=== PATIENT | male | born 1945 | race Caucasian/White ===

== ENCOUNTER 2021-03-07 18:53 | Observation (INO) | payer MEDICARE, BC, OTHER ==
[~2021-03-07] VITALS: Ht 180.3 cm; Wt 108.5 kg
[~2021-03-07 18:53] MED LIST: ASPI-496 PO; FINA5TAB4 PO; LISI1TAB23 PO; MULT-257 PO; SIMV40TA20 PO; TRAM50TA2 PO
--- NOTE | 2021-03-07 19:10 | NUR ---
Chest pain 10/10 that radiates to left shoulder at 1800. enroute 324 of asa 1 of nitro. At this time the pt denies pain. c/o of nausea and sob. EKG DONE ON ARRIVAL. PT HOOKED UP TO ALL MONITOR NSR ON MONITOR. CALL LIGHT WITHIN REACH. DR. RODRÍGUEZ AT BEDSIDER FOR EVAL.
[2021-03-07 19:35] LABS: BASOPHILS % (AUTO) 1 % (0-1); EOSINOPHILS % (AUTO) 5 % (1-7); LYMPHOCYTES % (AUTO) 32 % (22-44); MD NO; MEAN CORPUSCULAR HEMOGLOBIN 32.3 pg (27.5-34.5); MEAN CORPUSCULAR HGB CONC 34.1 g/dL (33.2-36.2); MEAN PLATELET VOLUME 8.2 fL (7.4-10.4); MONOCYTES % (AUTO) 9 % (2-9); NEUTROPHILS % (AUTO) 53 % (42-75); PLATELET COUNT 196 x10^3/uL (130-400); RED CELL DISTRIBUTION WIDTH 13.2 % (9.4-14.8)
[2021-03-07 19:46] LABS: ALBUMIN 3.8 g/dL (3.4-5.0); ANION GAP 5 mmol/L (5-15); CHLORIDE 113 mmol/L (98-107)
[2021-03-07 19:50] LABS: CREATININE 0.97 mg/dL (0.7-1.3); TROPONIN I < 0.015 ng/mL (0.000-0.045)
--- NOTE | 2021-03-07 20:00 | NUR ---
PT AT BEDSIDE. PT C/O MINIMAL CHEST PAIN AT THIS TIME 1/10 SQUEEZING FEELING. VSS. CALL REMOTE WITHING REACH. BED AT LOWEST LEVEL. CHART UP FOR RECHECK BY ERP.
[2021-03-07] MEDS ORDERED: MONT5TAB6 PO (20:36)
[2021-03-07] MEDS ORDERED: TADA5TAB2 PO (20:36)
[2021-03-07] MEDS ORDERED: IRBE75TA6 PO (20:36)
[2021-03-07] MEDS ORDERED: PROMETHAZINE 25 MG/ML, 1ML ONE (20:46)
[2021-03-07] MEDS ORDERED: RIBO25TA PO (21:00)
[2021-03-07] MEDS ORDERED: PROMETHAZINE 25 MG/ML, 1ML IM ONE (21:00)
[2021-03-07] MEDS ORDERED: CHOL10003 PO (21:00)
[2021-03-07] MEDS ORDERED: CALC-780 PO (21:00)
--- NOTE | 2021-03-07 21:00 | NUR ---
PT STATES DOES NOT HAVE NAUSEA AT THIS TIME. DOES NOT WANT PHENEGRAN.
--- NOTE | 2021-03-07 21:14 | NUR ---
REPORT GIVEN TO KENNY Nettles.
[2021-03-07] MEDS ORDERED: ACETAMINOPHEN 325 MG TABLET PO PRN (21:30)
[2021-03-07] MEDS ORDERED: ENALAPRILAT 1.25 MG/ML, 2ML IVPush PRN (21:30)
[2021-03-07] MEDS ORDERED: morphine SULFATE 10 MG/ML, 1ML IVPush PRN (21:30)
[2021-03-07] MEDS ORDERED: LIDODERM 5% PATCH TD PRN (21:30)
[2021-03-07] MEDS ORDERED: DOCUSATE 100 MG CAPSULE PO PRN (21:30)
[2021-03-07] MEDS ORDERED: MELATONIN 5 MG TABLET PO PRN (21:30)
[2021-03-07] MEDS ORDERED: ONDANSETRON 2MG/ML, 2ML IVPush PRN (21:30)
[2021-03-07] MEDS ORDERED: NITROGLYCERIN 0.4 MG BOTTLE (25 TABS) SL PRN (21:30)
[2021-03-07 22:12] VITALS: BP 145/87
[2021-03-07] MEDS: HEPARIN 5,000 UNITS/ML, 1ML SQ SCH (22:33)
[2021-03-08 00:24] VITALS: BP 130/85
[2021-03-08 01:28] LABS: TROPONIN I < 0.015 ng/mL (0.000-0.045)
[2021-03-08] MEDS: HEPARIN 5,000 UNITS/ML, 1ML SQ SCH ×2 (06:22→14:30)
[2021-03-08] MEDS ORDERED: POTASSIUM CHLORIDE 20 MEQ TAB.ER.PRT PO ONE (07:30)
[2021-03-08] MEDS ORDERED: IRBE1TAB37 PO (07:49)
[2021-03-08 08:00] VITALS: BP 130/85
[2021-03-08 08:23] LABS: BASOPHILS % (AUTO) 1 % (0-1); EOSINOPHILS % (AUTO) 4 % (1-7); LYMPHOCYTES % (AUTO) 27 % (22-44); MEAN CORPUSCULAR HEMOGLOBIN 32.3 pg (27.5-34.5); MEAN CORPUSCULAR HGB CONC 33.8 g/dL (33.2-36.2); MEAN PLATELET VOLUME 8.5 fL (7.4-10.4); MONOCYTES % (AUTO) 9 % (2-9); NEUTROPHILS % (AUTO) 60 % (42-75); PLATELET COUNT 186 x10^3/uL (130-400); RED BLOOD COUNT 4.81 x10^6/uL (4.38-5.82); RED CELL DISTRIBUTION WIDTH 13.5 % (9.4-14.8)
[2021-03-08 08:25] LABS: MD NO
[2021-03-08 08:37] LABS: ANION GAP 6 mmol/L (5-15); CALCIUM 8.5 mg/dL (8.5-10.1); CHLORIDE 112 mmol/L (98-107)
[2021-03-08 08:43] LABS: CHOL/HDL RATIO 3.2; CHOLESTEROL, TOTAL 155 mg/dL (140-239); HDL CHOL % 32 % (26-37); HDL CHOLESTEROL (DIRECT) 49 mg/dL (40-60); LDL CHOLESTEROL,CALCULATED 76 mg/dL (54-169); LDL/HDL RATIO 1.6 (0.5-3.0); TRIGLYCERIDES 151 mg/dL (50-200); TROPONIN I < 0.015 ng/mL (0.000-0.045); VLDL CHOLESTEROL 30 mg/dL (0-25)
[2021-03-08] MEDS ORDERED: REGADENOSON 0.4 MG/5 ML SYRINGE ONE (08:58)
[2021-03-08 13:58] VITALS: BP 128/81
== END 2021-03-08 16:12 | disposition home or self-care (01) ==
LOC: ED 19:22 → EDIP 21:08 → 5SO 21:50 → DCLOUNGE 03-08 16:05
PROVIDERS: ADMIT Family Medicine; ATTEND Family Medicine
DX: R07.89 Other chest pain (principal); I10 Essential (primary) hypertension; E78.5 Hyperlipidemia, unspecified; E66.9 Obesity, unspecified; N40.0 Benign prostatic hyperplasia without lower urinary tract symptoms; J45.909 Unspecified asthma, uncomplicated; I51.89 Other ill-defined heart diseases; I37.1 Nonrheumatic pulmonary valve insufficiency; I71.2 Thoracic aortic aneurysm, without rupture; Q21.1 Atrial septal defect; Z87.891 Personal history of nicotine dependence; Z79.899 Other long term (current) drug therapy
CPT/HCPCS: 36415; 71045; 78452; 80048; 80061; 82040; 83880; 84443; 84484; 85025; 93005; 93017; 93306; 96372; 99285; A9502; G0378; J1644; J2785

== ENCOUNTER 2021-07-28 08:29 | Inpatient (IN) | payer MEDICARE, BC, OTHER ==
[~2021-07-28] VITALS: Ht 182.9 cm; Wt 104.8 kg
[~2021-07-28 08:29] MED LIST changes: +CALC-780 PO; +CHOL10003 PO; +IRBE1TAB37 PO; +IRBE75TA6 PO; +MONT5TAB6 PO; +RIBO25TA PO; +TADA5TAB2 PO
--- NOTE | 2021-07-28 08:39 | NUR ---
PT BIBA. PER EMS PT HAS HAD COVID [id number], BUT HAD WORSENING SOB TODAY. PER EMS PT WAS MID 80% ON RA, PT CURRENTLY ON 4L NC O2 AND IS AT 94%. PT REPORTS HE HAS HAD THE COVID VACCINE. PT RESTING IN [facility], MONITORING IN PLACE, EKG DONE UPON ARRIVAL, PIV PLACED BY EMS, NUZHAT.
[2021-07-28] MEDS ORDERED: DEXAMETHASONE 4 MG/ML, 1ML ONE (08:55)
[2021-07-28 09:20] LABS: BASOPHILS % (AUTO) 0 % (0-1); EOSINOPHILS % (AUTO) 0 % (1-7); LYMPHOCYTES % (AUTO) 11 % (22-44); MEAN CORPUSCULAR HEMOGLOBIN 32.5 pg (27.5-34.5); MEAN CORPUSCULAR HGB CONC 34.8 g/dL (33.2-36.2); MEAN PLATELET VOLUME 8.9 fL (7.4-10.4); MONOCYTES % (AUTO) 6 % (2-9); NEUTROPHILS % (AUTO) 83 % (42-75); PLATELET COUNT 228 x10^3/uL (130-400); RED BLOOD COUNT 4.96 x10^6/uL (4.38-5.82); RED CELL DISTRIBUTION WIDTH 12.5 % (9.4-14.8)
[2021-07-28 09:21] LABS: PLATELET (DIC) 218 x10^3/uL (130-400)
--- NOTE | 2021-07-28 09:21 | NUR ---
PT O2 SATS CONTINUOUSLY DROPPING DOWN TO 87% DESPITE INCREASING O2. EDMD AWARE. PT NOW 92% ON 10L OXYMASK.
[2021-07-28] MEDS ORDERED: DEXAMETHASONE 4 MG/ML, 1ML IV ONE (09:30)
[2021-07-28 09:31] LABS: ALANINE AMINOTRANSFERASE 59 U/L (12-78); ALBUMIN 2.9 g/dL (3.4-5.0); ANION GAP 10 mmol/L (5-15); CALCIUM 8.6 mg/dL (8.5-10.1); CHLORIDE 105 mmol/L (98-107)
[2021-07-28 09:34] LABS: D-DIMER (DIC) 1.14 ug/mlFEU (0.00-0.52); PROTIME 10.9 Seconds (9.6-11.5); PTT 27 Seconds (25-31)
[2021-07-28 09:38] LABS: ALKALINE PHOSPHATASE 56 U/L (45-117); BILIRUBIN,TOTAL 1.6 mg/dL (0.2-1.0); CREATININE 0.99 mg/dL (0.7-1.3); TOTAL PROTEIN 7.5 g/dL (6.4-8.2)
[2021-07-28 09:43] LABS: FIBRINOGEN > 713 mg/dL (200-340)
[2021-07-28] MEDS: DOXYCYCLINE 100 MG in DEXTROSE 5% 250 ML IV SCH ×2 (10:00→22:21)
[2021-07-28] MEDS ORDERED: ONDANSETRON 2MG/ML, 2ML ONE (10:02)
[2021-07-28] MEDS ORDERED: ONDANSETRON 2MG/ML, 2ML IVPush ONE (10:30)
[2021-07-28] MEDS ORDERED: CEFTRIAXONE 1,000 MG in DEXTROSE 5% 50 ML IVPB ONE (11:00)
[2021-07-28 12:51] VITALS: BP 91/57
[2021-07-28] MEDS ORDERED: morphine SULFATE 10 MG/ML, 1ML IVPush PRN (13:30)
[2021-07-28] MEDS ORDERED: GUAIFENESIN/DM 200-20MG, 10ML UDC PO PRN (13:30)
[2021-07-28] MEDS ORDERED: hydrALAzine 20 MG/ML, 1ML IVPush PRN (13:30)
[2021-07-28] MEDS ORDERED: ACETAMINOPHEN 325 MG TABLET PO PRN (13:30)
[2021-07-28] MEDS ORDERED: PHARMACY MAY ADJ FOR RENAL FX MC PRN (13:30)
[2021-07-28] MEDS ORDERED: ALBUTEROL/IPRATROPIUM 2.5MG/0.5MG, 3 ML HHN SCH (14:00)
[2021-07-28] MEDS ORDERED: REMDESIVIR 200 MG in SODIUM CHLORIDE 0.9% 250 ML IVPB ONE (14:30)
[2021-07-28] MEDS: ALBUTEROL-IPRATROPIUM MDI INH INH SCH ×2 (16:20→22:21)
[2021-07-28] MEDS: GUAIFENESIN/DM 200-20MG, 10ML UDC PO SCH ×2 (16:22→22:21)
[2021-07-28] MEDS: HEPARIN 5,000 UNITS/ML, 1ML SQ SCH (16:22)
[2021-07-28 18:58] VITALS: BP 112/72
[2021-07-28] MEDS: SIMVASTATIN 40 MG TABLET PO SCH (19:58)
[2021-07-28] MEDS: MONTELUKAST 10 MG TABLET PO SCH (19:58)
[2021-07-28] MEDS: ASCORBIC ACID 500 MG TABLET PO SCH (19:58)
[2021-07-29 00:16] VITALS: BP 96/60
[2021-07-29] MEDS: HEPARIN 5,000 UNITS/ML, 1ML SQ SCH ×3 (01:06→16:41)
[2021-07-29] MEDS: GUAIFENESIN/DM 200-20MG, 10ML UDC PO SCH ×4 (03:53→22:22)
[2021-07-29] MEDS: ALBUTEROL-IPRATROPIUM MDI INH INH SCH ×4 (03:53→22:00)
[2021-07-29 05:39] LABS: BASOPHILS % (AUTO) 0 % (0-1); EOSINOPHILS % (AUTO) 0 % (1-7); LYMPHOCYTES % (AUTO) 11 % (22-44); MEAN CORPUSCULAR HEMOGLOBIN 32.4 pg (27.5-34.5); MEAN CORPUSCULAR HGB CONC 34.8 g/dL (33.2-36.2); MEAN PLATELET VOLUME 8.8 fL (7.4-10.4); MONOCYTES % (AUTO) 4 % (2-9); NEUTROPHILS % (AUTO) 85 % (42-75); PLATELET COUNT 226 x10^3/uL (130-400); RED BLOOD COUNT 4.84 x10^6/uL (4.38-5.82); RED CELL DISTRIBUTION WIDTH 12.9 % (9.4-14.8)
[2021-07-29 05:41] LABS: ALANINE AMINOTRANSFERASE 55 U/L (12-78); ALBUMIN 2.7 g/dL (3.4-5.0); ANION GAP 8 mmol/L (5-15); CALCIUM 8.6 mg/dL (8.5-10.1); CHLORIDE 107 mmol/L (98-107); CREATININE 0.74 mg/dL (0.7-1.3)
[2021-07-29 05:44] LABS: ALKALINE PHOSPHATASE 54 U/L (45-117); BILIRUBIN,TOTAL 1.4 mg/dL (0.2-1.0); TOTAL PROTEIN 7.4 g/dL (6.4-8.2)
[2021-07-29 07:19] VITALS: BP 105/69
[2021-07-29] MEDS: PANTOPRAZOLE 40MG TABLET PO SCH (08:10)
[2021-07-29] MEDS: IRBESARTAN 150 MG TABLET PO SCH ×2 (08:10→09:35)
[2021-07-29] MEDS: DEXAMETHASONE 4 MG/ML, 1ML IVPush SCH (08:10)
[2021-07-29] MEDS: ZINC SULFATE 220 MG CAPSULE PO SCH (08:11)
[2021-07-29] MEDS: ASCORBIC ACID 500 MG TABLET PO SCH ×2 (08:11→22:22)
[2021-07-29] MEDS: FINASTERIDE 5 MG TABLET PO SCH (08:11)
[2021-07-29] MEDS ORDERED: CEFTRIAXONE 1,000 MG in DEXTROSE 5% 50 ML IVPB SCH (09:00)
[2021-07-29] MEDS ORDERED: HYDROCHLOROTHIAZIDE 12.5 MG CAPSULE PO SCH (09:00)
[2021-07-29] MEDS: DOXYCYCLINE 100 MG in DEXTROSE 5% 250 ML IV SCH ×2 (10:35→22:23)
[2021-07-29 12:22] VITALS: BP 118/78
[2021-07-29] MEDS ORDERED: OMNIPAQUE 350 MG/ML, 100ML BOTTLE ONE (15:11)
[2021-07-29] MEDS: REMDESIVIR 100 MG in SODIUM CHLORIDE 0.9% 250 ML IVPB SCH (15:23)
[2021-07-29 19:34] VITALS: BP 122/76
[2021-07-29] MEDS: SIMVASTATIN 40 MG TABLET PO SCH (22:22)
[2021-07-29] MEDS: MONTELUKAST 10 MG TABLET PO SCH (22:22)
[2021-07-30] MEDS: HEPARIN 5,000 UNITS/ML, 1ML SQ SCH ×3 (00:05→18:14)
[2021-07-30 00:10] VITALS: BP 112/76
[2021-07-30] MEDS: GUAIFENESIN/DM 200-20MG, 10ML UDC PO SCH ×3 (04:24→18:14)
[2021-07-30] MEDS: ALBUTEROL-IPRATROPIUM MDI INH INH SCH ×3 (04:24→18:14)
[2021-07-30 07:06] LABS: BASOPHILS % (AUTO) 0 % (0-1); EOSINOPHILS % (AUTO) 1 % (1-7); LYMPHOCYTES % (AUTO) 10 % (22-44); MEAN CORPUSCULAR HEMOGLOBIN 31.7 pg (27.5-34.5); MEAN PLATELET VOLUME 8.9 fL (7.4-10.4); MONOCYTES % (AUTO) 4 % (2-9); NEUTROPHILS % (AUTO) 84 % (42-75); PLATELET COUNT 216 x10^3/uL (130-400); RED BLOOD COUNT 4.81 x10^6/uL (4.38-5.82); RED CELL DISTRIBUTION WIDTH 12.5 % (9.4-14.8)
[2021-07-30 07:20] LABS: CHLORIDE 106 mmol/L (98-107)
[2021-07-30 07:28] LABS: ALANINE AMINOTRANSFERASE 46 U/L (12-78); ALBUMIN 2.6 g/dL (3.4-5.0); ALKALINE PHOSPHATASE 52 U/L (45-117); ANION GAP 9 mmol/L (5-15); BILIRUBIN,TOTAL 1.2 mg/dL (0.2-1.0); CALCIUM 8.3 mg/dL (8.5-10.1); CREATININE 0.78 mg/dL (0.7-1.3); TOTAL PROTEIN 6.8 g/dL (6.4-8.2)
[2021-07-30 07:43] LABS: D-DIMER 1.93 ug/mlFEU (0.00-0.52)
[2021-07-30] MEDS: PANTOPRAZOLE 40MG TABLET PO SCH (08:38)
[2021-07-30 08:41] VITALS: BP 106/65
[2021-07-30] MEDS: ZINC SULFATE 220 MG CAPSULE PO SCH (09:59)
[2021-07-30] MEDS: CEFTRIAXONE 2,000 MG in DEXTROSE 5% 50 ML IVPB SCH (09:59)
[2021-07-30] MEDS: ASCORBIC ACID 500 MG TABLET PO SCH ×2 (09:59→20:30)
[2021-07-30] MEDS: IRBESARTAN 150 MG TABLET PO SCH (10:00)
[2021-07-30] MEDS: DEXAMETHASONE 4 MG/ML, 1ML IVPush SCH (10:01)
[2021-07-30] MEDS: FINASTERIDE 5 MG TABLET PO SCH (11:59)
[2021-07-30] MEDS: POTASSIUM CHLORIDE 20 MEQ TAB.ER.PRT PO SCH (11:59)
[2021-07-30] MEDS: DOXYCYCLINE 100 MG in DEXTROSE 5% 250 ML IV SCH (11:59)
[2021-07-30 14:30] VITALS: BP 108/71
[2021-07-30] MEDS: REMDESIVIR 100 MG in SODIUM CHLORIDE 0.9% 250 ML IVPB SCH (15:30)
[2021-07-30 20:10] VITALS: BP 106/70
[2021-07-30] MEDS: SIMVASTATIN 40 MG TABLET PO SCH (20:30)
[2021-07-30] MEDS: MONTELUKAST 10 MG TABLET PO SCH (20:30)
[2021-07-31] MEDS: DOXYCYCLINE 100 MG in DEXTROSE 5% 250 ML IV SCH ×2 (00:14→13:17)
[2021-07-31] MEDS: ALBUTEROL-IPRATROPIUM MDI INH INH SCH ×4 (00:14→19:21)
[2021-07-31] MEDS: GUAIFENESIN/DM 200-20MG, 10ML UDC PO SCH ×4 (00:14→19:20)
[2021-07-31 02:23] VITALS: BP 127/79
[2021-07-31] MEDS: HEPARIN 5,000 UNITS/ML, 1ML SQ SCH ×3 (02:31→19:21)
[2021-07-31 05:55] LABS: HCT (SEDRATE) 44.2 % (39.2-51.8)
[2021-07-31 06:04] LABS: ALBUMIN 2.6 g/dL (3.4-5.0); ANION GAP 5 mmol/L (5-15); BASOPHILS % (AUTO) 0 % (0-1); CALCIUM 8.4 mg/dL (8.5-10.1); CHLORIDE 108 mmol/L (98-107); EOSINOPHILS % (AUTO) 2 % (1-7); LYMPHOCYTES % (AUTO) 6 % (22-44); MEAN CORPUSCULAR HEMOGLOBIN 32.2 pg (27.5-34.5); MEAN CORPUSCULAR HGB CONC 34.5 g/dL (33.2-36.2); MEAN PLATELET VOLUME 8.9 fL (7.4-10.4); MONOCYTES % (AUTO) 4 % (2-9); NEUTROPHILS % (AUTO) 88 % (42-75); PLATELET COUNT 239 x10^3/uL (130-400); RED BLOOD COUNT 4.67 x10^6/uL (4.38-5.82); RED CELL DISTRIBUTION WIDTH 12.4 % (9.4-14.8)
[2021-07-31 06:13] LABS: ALANINE AMINOTRANSFERASE 40 U/L (12-78); ALKALINE PHOSPHATASE 51 U/L (45-117); BILIRUBIN,TOTAL 0.9 mg/dL (0.2-1.0); CREATININE 0.77 mg/dL (0.7-1.3); TOTAL PROTEIN 6.8 g/dL (6.4-8.2)
[2021-07-31 06:59] LABS: D-DIMER 1.54 ug/mlFEU (0.00-0.52)
[2021-07-31] MEDS: PANTOPRAZOLE 40MG TABLET PO SCH (08:21)
[2021-07-31] MEDS: POTASSIUM CHLORIDE 20 MEQ TAB.ER.PRT PO SCH (08:21)
[2021-07-31 09:14] VITALS: BP 107/70
[2021-07-31] MEDS: CEFTRIAXONE 2,000 MG in DEXTROSE 5% 50 ML IVPB SCH (10:53)
[2021-07-31] MEDS: ZINC SULFATE 220 MG CAPSULE PO SCH (11:18)
[2021-07-31] MEDS: ASCORBIC ACID 500 MG TABLET PO SCH ×2 (11:18→20:34)
[2021-07-31] MEDS: IRBESARTAN 150 MG TABLET PO SCH (11:18)
[2021-07-31] MEDS: FINASTERIDE 5 MG TABLET PO SCH (11:18)
[2021-07-31] MEDS: DEXAMETHASONE 4 MG/ML, 1ML IVPush SCH (11:19)
[2021-07-31] MEDS: REMDESIVIR 100 MG in SODIUM CHLORIDE 0.9% 250 ML IVPB SCH (15:31)
[2021-07-31 15:51] VITALS: BP 100/63
[2021-07-31 19:35] VITALS: BP 115/70
[2021-07-31] MEDS: SIMVASTATIN 40 MG TABLET PO SCH (20:34)
[2021-07-31] MEDS: MONTELUKAST 10 MG TABLET PO SCH (20:34)
[2021-08-01 00:21] VITALS: BP 124/77
[2021-08-01] MEDS: DOXYCYCLINE 100 MG in DEXTROSE 5% 250 ML IV SCH ×2 (00:36→14:40)
[2021-08-01] MEDS: GUAIFENESIN/DM 200-20MG, 10ML UDC PO SCH ×3 (00:37→12:07)
[2021-08-01] MEDS: ALBUTEROL-IPRATROPIUM MDI INH INH SCH ×3 (00:37→11:37)
[2021-08-01] MEDS: HEPARIN 5,000 UNITS/ML, 1ML SQ SCH ×2 (03:11→08:44)
[2021-08-01 06:30] LABS: CHLORIDE 110 mmol/L (98-107)
[2021-08-01 06:39] LABS: ALANINE AMINOTRANSFERASE 32 U/L (12-78); ALBUMIN 2.2 g/dL (3.4-5.0); ALKALINE PHOSPHATASE 45 U/L (45-117); ANION GAP 6 mmol/L (5-15); CREATININE 0.65 mg/dL (0.7-1.3); TOTAL PROTEIN 6.3 g/dL (6.4-8.2)
[2021-08-01] MEDS: POTASSIUM CHLORIDE 20 MEQ TAB.ER.PRT PO SCH (07:31)
[2021-08-01] MEDS: PANTOPRAZOLE 40MG TABLET PO SCH (07:31)
[2021-08-01] MEDS: CEFTRIAXONE 2,000 MG in DEXTROSE 5% 50 ML IVPB SCH (08:42)
[2021-08-01] MEDS: IRBESARTAN 150 MG TABLET PO SCH (08:43)
[2021-08-01] MEDS: FINASTERIDE 5 MG TABLET PO SCH (08:43)
[2021-08-01] MEDS: ASCORBIC ACID 500 MG TABLET PO SCH (08:43)
[2021-08-01] MEDS: ZINC SULFATE 220 MG CAPSULE PO SCH (08:43)
[2021-08-01 08:44] VITALS: BP 110/72
[2021-08-01] MEDS: DEXAMETHASONE 4 MG/ML, 1ML IVPush SCH (08:44)
[2021-08-01] MEDS ORDERED: IRBE150T49 PO (10:25)
[2021-08-01] MEDS ORDERED: PRED20TA PO (10:25)
[2021-08-01] MEDS ORDERED: CEFD300C37 PO (10:26)
[2021-08-01] MEDS ORDERED: DOXY100C5 PO (10:26)
[2021-08-01] MEDS ORDERED: ASCO500C2 PO (10:27)
[2021-08-01] MEDS: REMDESIVIR 100 MG in SODIUM CHLORIDE 0.9% 250 ML IVPB SCH (12:07)
[2021-08-01 12:34] VITALS: BP 104/70
== END 2021-08-01 18:50 | disposition home or self-care (01) | DRG 177 ==
LOC: ED 08:58 → EDIP 09:58 → 3N 12:35
PROVIDERS: ADMIT Internal Medicine; ATTEND Hospitalist
PROC: XW033E5 Introduction of Remdesivir Anti-infective into Peripheral Vein, Percutaneous Approach, New Technology Group 5 (ICD-10-PCS; principal; 2021-07-28)
DX: U07.1 COVID-19 (principal); J12.82 Pneumonia due to coronavirus disease 2019; J96.01 Acute respiratory failure with hypoxia; I10 Essential (primary) hypertension; E78.5 Hyperlipidemia, unspecified; E87.6 Hypokalemia; N40.0 Benign prostatic hyperplasia without lower urinary tract symptoms; Z87.891 Personal history of nicotine dependence; R79.89 Other specified abnormal findings of blood chemistry; Z90.49 Acquired absence of other specified parts of digestive tract; Z91.013 Allergy to seafood
CPT/HCPCS: 36415; 71045; 71275; 80053; 82728; 83605; 83615; 83735; 83880; 84100; 84145; 85025; 85049; 85379; 85384; 85610; 85651; 85730; 86140; 87040; 93005; 96365; 96375; 99285; G0378; J0696; J1100; J1644; J2405; J7060; Q9967; J7050